=== PATIENT | male | born 1965 | race Caucasian/White ===

== ENCOUNTER 2021-12-17 06:06 | Emergency (ER) | payer BC, SELFPAY ==
--- NOTE | ~2021-12-17 | XR_ITS ---
XR knee LT 3V DATE: 12/17/2021 06:57 INDICATION: Twisted knee. Left knee pain. TECHNIQUE: 3 views COMPARISON: None FINDINGS: No fracture or dislocation or joint effusion, radiopaque intra-articular loose body or darlyn drocalcinosis. No periosteal reaction or bone destruction. Joint spaces are well preserved. IMPRESSION: Negative Reviewed, dictated and finalized at location A. IMPRESSION: Negative
[2021-12-17 06:14] VITALS: BP 170/100; PULSE 87; RESP 17; TEMP 36.6; O2SAT 97
--- NOTE | 2021-12-17 06:21 | ED.LOWEXIN ---
HPI - Extremity Injury (Lower) General Chief Complaint: Extremity Injury, Lower Stated Complaint: Left knee pain Time Seen by Provider: 12/17/21 06:16 History of Present Illness HPI Narrative: 56-year-old male states he was playing ice hockey yesterday when his right gait was continue to go straight but the left gait veered off to the left. He twisted his left knee. He felt a twinge of pain to the medial aspect of the left knee. However he continued to skate and play. However afterwards began having more more pain to the left knee. He states trying to sleep last night it was painful every time he tried to move around. Denies any prior injuries. He has never seen an orthopedic physician. He has no pain to the left ankle or hip. Related Data Home Medications Medication Instructions Recorded Confirmed amlodipine 5 mg tablet tablet 12/17/21 atorvastatin 20 mg tablet tablet 12/17/21 escitalopram oxalate 20 mg tablet tablet 12/17/21 valsartan 320 tablet 12/17/21 mg-hydrochlorothiazide 25 mg tablet zolpidem 12.5 mg tablet,extended tablet PO 12/17/21 release,multiphase Allergies Allergy/AdvReac Type Severity Reaction Status Date / Time sertraline AdvReac Mild severe Verified 12/17/21 06:21 depression Review of Systems Review of Systems: CONSTITUTIONAL: Denies fever, chills, or sweats. EYES: Denies visual changes, redness, or discharge. ENT: Denies rhinorrhea, congestion, sore throat, or otalgia. CARDIOVASCULAR: Denies chest pain, palpitations, or edema. RESPIRATORY: Denies cough or dyspnea. GASTROINTESTINAL: Denies abdominal pain, nausea, vomiting, or diarrhea. GENITOURINARY: Denies dysuria or hematuria. SKIN: Denies rash or itching. MUSCULOSKELETAL: Pain to the left knee. Denies any pain to the back. NEUROLOGIC: Denies headache, numbness, or weakness. PSYCHIATRIC: Denies anxiety or depression. [facility] Past Medical History Medical History Depression Hypercholesterolemia Hypertension Family History Family History Father Family history of dementia Family history of heart disease in male family member before age 55 Grandparent Family history of heart disease in male family member before age 55 Other Family history of cardiovascular disease Social History Social History Smoking status: Never smoker Second hand tobacco smoke exposure: Yes Alcohol intake: current Exam Narrative: APPEARANCE: Well appearing, no pain or distress, well-nourished. Head normocephalic and atraumatic. EYES: PERRLA/EOMI, conjunctivae very clear. NOSE: Normal with no drainage EARS:TMS clear Alanis Phillips, with good light reflex. THROAT: Pharynx clear, no exudate. NECK: Supple. No adenopathy, no masses. RESPIRATORY: Airway patent, respirations nonlabored. Clear to auscultation bilaterally, no rales, rhonchi, wheezing. CARDIOVASCULAR: Regular rate and rhythm without murmurs, rubs, or gallops. ABDOMINAL: Soft, nontender, nondistended, no hepatosplenomegaly Musculoskeletal: Moves all extremities. Strength/ROM intact, No edema, No calf tenderness. Tenderness to palpation to the medial aspect of the left knee. And stressing the joint increases pain. No obvious effusion. No bony abnormalities. NEURO: Alert. Cranial nerves II through XII intact. Normal gait. Good coordination. Nonfocal examination. SKIN:: Warm, dry. Normal Color PSYCHIATRIC: Normal affect/mood, normal interaction Course Vital Signs Vital signs: Vital Signs Temperature 97.9 F 12/17/21 06:14 Pulse Rate 87 12/17/21 06:14 Respiratory Rate 17 12/17/21 06:14 Blood Pressure 170/100 H 12/17/21 06:14 Pulse Oximetry 97 12/17/21 06:14 Oxygen Delivery Room Air 12/17/21 06:14 Temperature 97.9 F 12/17/21 06:14 Pulse Rate 87 12/17/21 06:14 Respiratory Rate 17 12/17/21 06
[2021-12-17 07:40] VITALS: BP 145/89; PULSE 75; RESP 18; O2SAT 96
== END 2021-12-17 07:40 | disposition home or self-care (01) ==
PROVIDERS: Emergency Provider Emergency Medicine; PCP Physician Assistant
DX: M23.92 Unspecified internal derangement of left knee (principal); S89.92XA Unspecified injury of left lower leg, initial encounter; F32.A Depression, unspecified; E78.00 Pure hypercholesterolemia, unspecified; I10 Essential (primary) hypertension; X50.9XXA Other and unspecified overexertion or strenuous movements or postures, initial encounter; Y93.22 Activity, ice hockey
CPT/HCPCS: 73562; 99283

== ENCOUNTER → 2021-12-29 09:13 | Outpatient (CLI) | payer BC, SELFPAY ==
--- NOTE | ~2021-12-29 | MR_ITS ---
EXAMINATION: MR knee LT wo con DATE: 12/29/2021 09:55 INDICATION: Left medial knee pain after playing hockey 2 weeks ago. TECHNIQUE: Magnetic resonance imaging (MRI) of the left knee was performed without intravenous contra st. Sequences included axial PD-weighted FS FSE, coronal PD-weighted FSE and PD-weighted FS FSE, sagi ttal PD-weighted FSE, and sagittal T2-weighted FS FSE. COMPARISON: None. FINDINGS: Medial compartment: Meniscus and cartilage intact. Lateral compartment: Meniscus and cartilage intact. Patellofemoral compartment: Mild partial thickness cartilage signal abnormality, with subchondral edema at the median ridge. Reti nacula are intact. Ligaments and tendons: High signal present within and medial to the fibers of the proximal and mid MCL, with disruption of t he anterior fibers, representing grade 2/partial thickness tear. ACL, PCL, LCL, and flexor and extens or tendons are intact. Fluid: No significant joint fluid. Trace Jordan's cyst. Osseous/other: Unremarkable marrow signal. IMPRESSION: 1. Grade 2 partial-thickness MCL tear. 2. Mild chondromalacia patella. Reviewed, dictated and finalized at location K.
== END ==
PROVIDERS: PCP Physician Assistant; Visit Provider Orthopaedic Surgery
DX: S83.412A Sprain of medial collateral ligament of left knee, initial encounter (principal); X58.XXXA Exposure to other specified factors, initial encounter
CPT/HCPCS: 73721

== ENCOUNTER 2025-05-20 15:56 | Outpatient (CLI) | payer BC, SELFPAY ==
--- NOTE | ~2025-05-20 | US_ITS ---
EXAMINATION: US abdomen limited DATE: 05/20/2025 16:09 INDICATION: Elevated liver enzymes. TECHNIQUE: Multiple grayscale and Doppler ultrasound images of the abdomen were obtained. COMPARISON: None previous available. FINDINGS: No evidence of gallstones or gallbladder wall thickening. Common hepatic duct measures 3 mm. Liver measures craniocaudal span of 16 cm. Normal echotexture. No surface nodularity. Portal vein and hepatic veins are patent. Right kidney contains a couple of cysts, up to 5 cm in size. No free fluid. IMPRESSION: 1. No abnormalities of gallbladder and extrahepatic bile ducts. 2. Normal size liver without focal lesions. Normal echotexture and surface of liver. Spleen and left abdomen were not examined. 3. No free fluid. Cystic lesions of the right kidney. Reviewed, dictated and finalized at location T. INSPECTOR IMPRESSION: 1. No abnormalities of gallbladder and extrahepatic bile ducts. 2. Normal size liver without focal lesions. Normal echotexture and surface of l iver. Spleen and left abdomen were not examined. 3. No free fluid. Cystic lesions of the right kidney.
== END 2025-05-20 15:57 | disposition home or self-care (01) ==
LOC: GOSHIMG 15:56
PROVIDERS: PCP Physician Assistant; Visit Provider Physician Assistant
DX: R74.8 Abnormal levels of other serum enzymes (principal)
CPT/HCPCS: 76705